=== PATIENT | female | born 1950 ===

== ENCOUNTER 2019-03-26 06:03 | Day surgery (SDC) | payer OTHER ==
[2019-03-24 17:58] VITALS: BMI 42.5
[2019-03-26] MEDS ORDERED: LIDOCAINE HCL 1%, 10 MG/ML (20ML VIAL) ONE (07:06)
[2019-03-26] MEDS ORDERED: BUPIVACAINE HCL/PF 0.5% (5MG/ML) 10 ML VIAL ONE ×2 (07:08→07:34)
[2019-03-26] MEDS ORDERED: LIDOCAINE HCL/PF 2% SDV 5ML VIAL ONE (07:39)
[2019-03-26] MEDS ORDERED: PROPOFOL 20 ML ONE ×3 (07:39→07:58)
[2019-03-26] MEDS ORDERED: MIDAZOLAM HCL 2 MG/2 ML SINGLE DOSE VIAL ONE (07:40)
[2019-03-26] MEDS ORDERED: ceFAZolin SODIUM 1 GM VIAL IVPB ONE (07:45)
[2019-03-26] MEDS ORDERED: LIDOCAINE HCL 1%, 10 MG/ML (20ML VIAL) NR ONE (07:45)
[2019-03-26] MEDS ORDERED: BUPIVACAINE HCL/PF 0.5% (5 MG/ML) 30 ML VIAL IJ ONE (07:45)
[2019-03-26] MEDS ORDERED: ceFAZolin SODIUM 1 GM VIAL ONE (07:58)
[2019-03-26] MEDS ORDERED: KETOROLAC TROMETHAMINE 30 MG/1 ML VIAL ONE (08:01)
[2019-03-26] MEDS ORDERED: ACETAMINOPHEN 500 MG TABLET (FP) PO PRN (08:54)
[2019-03-26] MEDS ORDERED: ONDANSETRON 4 MG/2 ML VIAL IVPUSH PRN (08:54)
[2019-03-26] MEDS ORDERED: oxyCODONE HCL 5 MG TABLET PO PRN (08:54)
--- NOTE | 2019-03-26 08:58 | OP ---
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 Implants: Mitek anchor, Kwire Surgeon: Bert Louie Overlock Elastic Attacher: Olga Lidia Kraus Anesthesia: MAC Specimens Removed: bone Estimated Blood Loss (mls): 2 Operative Report Dictated: No
[2019-03-26] MEDS ORDERED: LACTATED RINGERS SOLUTION 1,000 ML IV SCH (09:00)
[2019-03-26 12:26] VITALS: BP 137/70; PULSE 81; TEMP 98.5
--- NOTE | 2019-03-31 15:48 | PATH ---
Surgical Pathology Report Patient Name: LU MOJICA [facility]. Rec. #: [id number] /Age/Gender: 1950 (Age: 68) / F Account: [id number] Location: [facility] SURGICAL Taken: 03/26/2019 Received: 03/26/2019 Reported: 03/31/2019 Physicians: Bert Louie DPM Specimen(s) Received BONE LEFT GREAT TOE Clinical History Hallux valgus Final Diagnosis BONE, LEFT GREAT TOE, EXCISION: PORTION OF BONE WITH DEGENERATIVE CHANGE. Electronically Signed Manuel Jung M.D. Gross Description Received in formalin labeled "bone left great toe," is a 2.2 x 1.8 x 1.1 cm marx, irregular portion of bone. Sectioning reveals a possible cystic structure. Operating Engineer sections are submitted in one cassette, following decalcification. 03/29/2019 saudi03/29/2019
--- NOTE | 2019-04-08 14:44 | OP ---
DATE OF OPERATION: 03/26/2019 Surgery was on the left foot. Attention was drawn to the left foot in the area of the left big toe or bunion. A 4.0-cm linear longitudinal incision was made medial and parallel to the 1st metatarsophalangeal joint of the left foot. The incision was deepened through subcutaneous tissue to the level of the joint capsule of the 1st metatarsophalangeal joint. Two 3.0-cm curvilinear incisions were made in the joint capsule, exposing the 1st metatarsal head. All tissue was dissected away from the 1st metatarsal head and the proximal phalangeal base. A periosteal elevator was used to clear the remaining tissue from the base of the proximal phalanx. An osteotome and mallet were utilized to resect the medial eminence of the 1st metatarsal head. A copious flush of normal saline was introduced. Attention was drawn to the base of the proximal phalanx of the left hallux. One-third of the proximal section was resected in a transverse manner with an oscillating saw. Extensor and flexor tendons were identified. Interphalangeal joint contracture was reduced, and a 0.062 Isra wire was introduced from the surgical site distal and then proximal into the head of the 1st metatarsal, stabilizing the big toe. The area was inspected for any debris or foreign material. Copious flush of normal saline was introduced. Tissues were reapproximated layer by layer. Capsular tissue was reapproximated with 2-0 absorbable suture, subcutaneous tissue reapproximated with 3-0 absorbable suture, and skin reapproximated with 4-0 non-absorbable suture. A dry sterile dressing was applied. Tourniquet was released, and patient tolerated the procedure well and left the OR in good condition. ZEE [id number]
== END 2019-03-26 12:15 | disposition home or self-care (01) ==
LOC: JASU-SURG 06:03
PROVIDERS: ATTEND Podiatrist
PROC: 0LXW0ZZ Transfer Left Foot Tendon, Open Approach (ICD-10-PCS; 2019-03-26)
PROC: 0QBR0ZZ Excision of Left Toe Phalanx, Open Approach (ICD-10-PCS; principal; 2019-03-26 07:30)
DX: M20.12 Hallux valgus (acquired), left foot (principal); M21.612 Bunion of left foot; E11.9 Type 2 diabetes mellitus without complications; Z79.4 Long term (current) use of insulin; E66.01 Morbid (severe) obesity due to excess calories; E03.9 Hypothyroidism, unspecified
CPT/HCPCS: 73630-TC-LT; 82962; 88305-TC; 88311-TC; 94760